=== PATIENT | female | born 1995 | race Caucasian/White ===

== ENCOUNTER 2024-01-09 00:07 | Emergency (ER) | payer SELFPAY ==
[2024-01-09 00:23] VITALS: BP 136/84; PULSE 112; TEMP 37.8; O2SAT 98; BMI 36.0
--- NOTE | 2024-01-09 00:43 | PC.NURSE ---
States feels a lump ant.distil right thigh, no pain ,redness or warmth. Just happened to rub leg and feel it.
--- NOTE | 2024-01-09 00:52 | CT_ITS ---
The [address] [address] Patient Name: MARY ALCANTAR MRN: [id number] date: 1995 Sex: F Assigned Patient Location: ER Current Patient Location: ER Accession/Order Number: [id number] Exam Date: 01/09/2024 01:45 Report Date: 01/09/2024 04:03 At the request of: SHIRA BARAHONA Procedure: CT femur RT w con EXAM: CT femur RT w con HISTORY: Patient describes a firm bump along the right thigh for 3 weeks. COMPARISON: None. TECHNIQUE: Routine CT right femur with intravenous contrast. FINDINGS: The bony alignment and mineralization are normal. There is no fracture. There is no osseous destruction or periostitis. There is no osteolytic or osteoblastic lesion. The right hip and knee joints are unremarkable. There is no muscular or tendinous derangement. The vascular structures are unremarkable. A skin marker was placed over the palpable area of clinical concern which is located anteriorly along the distal right thigh. There is fat within the subcutaneous tissues underlying this region however no well-defined mass lesion is identified. There are no pathologically enlarged lymph nodes. There is no inflammatory process. CT/CT femur RT w con IMPRESSION: A skin marker was placed over the palpable area of clinical concern which is located anteriorly along the distal right thigh. There is fat within the subcutaneous tissues underlying this region however no well-defined mass lesion is identified. There are no pathologically enlarged lymph nodes. An MRI of the right thigh without and with intravenous contrast is recommended for additional evaluation if there is persistence of clinical symptoms. The osseous structures are unremarkable. Electronically authenticated by: BLESSING SULLIVAN Date: 01/09/2024 04:03
--- NOTE | 2024-01-09 00:52 | ED_ITS ---
HPI - Skin/Abscess/Foreign Bdy General Chief complaint: Skin/Abscess/Foreign Body Stated complaint: RT LEG BUMP Time Seen by Provider: 01/09/24 00:14 Source: patient Mode of arrival: walk-in Limitations: no limitations History of Present Illness HPI narrative: 28-year-old female presents for what she describes as a lump under the skin of her right anterior lower thigh. She noticed it 3 weeks ago. She is worried it might be sarcoma. It is not painful or red and she has no other symptoms. It is continuous. No trauma. Related Data Allergies Allergy/AdvReac Type Severity Reaction Status Date / Time No Known Drug Allergies Allergy Verified 01/09/24 00:23 Review of Systems ROS Narrative A ten point review of systems is negative except as noted above. Exam Narrative Exam Narrative: Nurses note and vital signs reviewed and patient is not hypoxic. General: The patient appears well and in no apparent distress. Patient is resting comfortably on cart. Skin: Warm, dry, no pallor noted. There is no rash noted. Head: Normocephalic, atraumatic Eye: Normal conjunctiva, no drainage Ears, Nose, Mouth, and Throat: oral mucosa is moist. Nares patent. Cardiovascular: Regular Rate and Rhythm Respiratory: Patient is in no distress, no accessory muscle use, lungs are clear to auscultation, no wheezing, rales or rhonchi GI: Soft and nontender Musculoskeletal: Her right thigh is examined. There is no erythema or bruising or rash. I do not appreciate the subcutaneous mass that she is pointing out. There is no fluctuance. Neurological: A&O, normal speech Psychiatric: Cooperative Constitutional Vital Signs, click to edit/add: Last Vital Signs Temp 100.0 F 01/09/24 00:23 Pulse 112 H 01/09/24 00:23 Resp 20 01/09/24 00:23 BP 136/84 01/09/24 00:23 Pulse Ox 98 01/09/24 00:23 O2 Del Method Room Air 01/09/24 00:23 Course Vital Signs Vital signs: Vital Signs Temperature 100.0 F 01/09/24 00:23 Pulse Rate 112 H 01/09/24 00:23 Respiratory Rate 20 01/09/24 00:23 Blood Pressure 136/84 01/09/24 00:23 Pulse Oximetry 98 01/09/24 00:23 Oxygen Delivery Method Room Air 01/09/24 00:23 Temperature 100.0 F 01/09/24 00:23 Pulse Rate 112 H 01/09/24 00:23 Respiratory Rate 20 01/09/24 00:23 Blood Pressure 136/84 01/09/24 00:23 Pulse Oximetry 98 01/09/24 00:23 Oxygen Delivery Method Room Air 01/09/24 00:23 MDM - Skin/Abscess/Foreign Bdy MDM Narrative Medical decision making narrative: CT scan per radiologist shows subcutaneous fat. She is still concerned about it so she is being referred to general surgery for follow-up. She was reassured that there does not appear to be any sort of tumor or other mass. Treatment diagnosis and follow-up were discussed with the patient. Differential Diagnosis Differential diagnosis: Likely abscess of skin or subcutaneous tissue, insect bites and other (Lipoma) Imaging Data CT femur: Radiologist's impression: ITS Impressions Femur CT 01/09/24 00:52 IMPRESSION: A skin marker was placed over the palpable area of clinical concern which is located anteriorly along the distal right thigh. There is fat within the subcutaneous tissues underlying this region however no well-defined mass lesion is identified. There are no pathologically enlarged lymph nodes. An MRI of the right thigh without and with intravenous contrast is recommended for additional evaluation if there is persistence of clinical symptoms. The osseous structures are unremarkable. Electronically authenticated by: BLESSING SULLIVAN Date: 01/09/2024 04:03 Discharge Plan Discharge Stand Alone Forms: Portal Instructions Chief Complaint: Skin/Abscess/Foreign Body Clinical Impression: Lipoma Patient Disposition: Home, Self-Care Time of Disposition Decision: 04:11 Condition: Good Mode of Transportation: Private Vehicle Print Language: Luxembourgish Instructions: Lipoma (ED) Referrals: Montrell Perla DO [Physician] - 1 week Physician,Non-Staff, MD [Primary Care Provider] - 1 week
[2024-01-09 04:20] VITALS: BP 150/90; PULSE 101; O2SAT 98
== END 2024-01-09 04:23 | disposition home or self-care (01) ==
PROVIDERS: Emergency Provider Emergency Medicine
DX: D17.23 Benign lipomatous neoplasm of skin and subcutaneous tissue of right leg (principal)
CPT/HCPCS: 73701; 99284; Q9967